=== PATIENT | male | born 1990 | race Two or more races ===

== ENCOUNTER 2024-11-02 10:32 | Emergency (ER) | payer OTHER ==
[2024-11-02] MEDS ORDERED: Sodium Chloride 0.9% 10 ML Syringe FLUSH PRN (10:48)
[2024-11-02 10:56] LABS: BASOPHILS PERCENT AUTO 0.5 % (0.0-1.0); EOSINOPHILS ABSOLUTE AUTO 0.1 K/mm3 (0.0-0.4); EOSINOPHILS PERCENT AUTO 1.1 % (0.0-6.0); HEMATOCRIT 40.2 % (42.0-52.0); HEMOGLOBIN 13.6 gm/dl (14.0-18.0); IMMATURE GRAN ABSOLUTE AUTO 0.02 K/mm3 (0.00-0.05); IMMATURE GRAN PERCENT AUTO 0.3 % (0.0-0.4); LYMPHOCYTES ABSOLUTE AUTO 1.9 K/mm3 (1.0-4.8); LYMPHOCYTES PERCENT AUTO 25.8 % (24.0-44.0); MEAN CORPUSCULAR HEMOGLOBIN 29.8 pg (28.0-32.0); MEAN CORPUSCULAR HGB CONC 33.8 g/dl (32.0-36.0); MEAN PLATELET VOLUME 9.9 fl (9.4-12.4); MONOCYTES ABSOLUTE AUTO 0.6 K/mm3 (0.0-0.8); MONOCYTES PERCENT AUTO 7.8 % (0.0-8.0); NEUTROPHILS ABSOLUTE AUTO 4.7 K/mm3 (1.8-7.7); NEUTROPHILS PERCENT AUTO 64.5 % (41.0-71.0); PLATELET COUNT,PLT 205 K/mm3 (150-400); RED BLOOD CELL COUNT 4.57 M/mm3 (4.52-5.90); WHITE BLOOD CELL COUNT,WBC 7.32 K/mm3 (3.9-11.3)
[2024-11-02] MEDS: Sodium Chloride 0.9% 1,000 ML IV ONE (11:07)
[2024-11-02] MEDS: Diphtheria,Pertussis(Acell),Tetanus Vaccine 0.5 ML Syringe IM ONE (11:08)
[2024-11-02 11:14] LABS: INR 1.01; PROTHROMBIN TIME 10.7 SECONDS (9.7-12.0)
[2024-11-02 11:15] LABS: A/G RATIO 1.2 (1-2); ALANINE AMINOTRANSFERASE,ALT 38 U/L (16-63); ALBUMIN 3.5 g/dl (3.4-5.0); ALKALINE PHOSPHATASE 55 U/L (46-116); ANION GAP 10.4 (5-15); ASPARTATE AMNIOTRANSFERASE,AST 44 U/L (15-37); BILIRUBIN TOTAL 0.9 mg/dL (0.2-1.0); BLOOD UREA NITROGEN,BUN 12 mg/dL (7-18); CALCIUM 8.1 mg/dL (8.5-10.1); CARBON DIOXIDE,CO2 27 mEq/L (21-32); CHLORIDE,CL 106 mEq/L (98-107); CREATINE KINASE,CK 889 U/L (39-308); ESTIMATED GFR 100 mL/min (>60); GLUCOSE RANDOM 109 mg/dL (70-99); LIPASE 26 U/L (16-77); POTASSIUM,K 3.4 mEq/L (3.5-5.1); PROTEIN TOTAL,TP 6.5 g/dl (6.4-8.2); SODIUM,NA 140 mEq/L (136-145)
[2024-11-02 11:16] LABS: PTT,PARTIAL THROMBOPLSTIN TIME 23.9 SECONDS (21.7-31.4)
[2024-11-02] MEDS: Sodium Chloride 0.9% 10 ML Syringe FLUSH ONE (11:21)
[2024-11-02] MEDS: Iopamidol 755 Mg/ML 100 ML Bottle IVPUSH ONE (11:21)
[2024-11-02] MEDS: HYDROmorphone 1 MG/ML Syringe IVPUSH ONE (11:24)
[2024-11-02] MEDS: Propofol 200 MG/20 ML SDV IVPUSH ONE (12:20)
== END 2024-11-02 13:48 ==
LOC: JD.ED 10:32
DX: S72.351A Displaced comminuted fracture of shaft of right femur, initial encounter for closed fracture (principal); S32.402A Unspecified fracture of left acetabulum, initial encounter for closed fracture; Z23 Encounter for immunization; W22.8XXA Striking against or struck by other objects, initial encounter; Y93.89 Activity, other specified
CPT/HCPCS: 36415; 71045; 72170; 73552; 73590; 74177; 80053; 82550; 83690; 85025; 85610; 85730; 86850; 86900; 86901; 90471; 90715; 96374; 99285; J1171; J7030; Q9967; 99284